=== PATIENT | female | born 1940 | race Caucasian/White ===

== ENCOUNTER → 2021-11-03 | Outpatient (CLI) | payer MEDICARE ==
--- NOTE | 2021-11-03 15:00 | BD ---
EXAMINATION TYPE: Axial Bone Density DATE OF EXAM: 11/03/2021 COMPARISON: NONE CLINICAL HISTORY: 81 years year old Female. ICD-10 CODE: M85.80 DISORDER OF BONE DENSITY Height: 5 FT 3/4 IN Weight: 121 FRAX RISK QUESTIONS: Alcohol (3 or more units per day): NO Family History (Parent hip fracture): NO Glucocorticoids (More than 3mos): NO (Ex: prednisone, prednisolone, methylprednisolone, dexamethasone, and hydrocortisone). History of Fracture in Adulthood: YES Secondary Osteoporosis: 1. Type 1 Diabetes: NO 2. Hyperthyroidism: NO 3. Menopause before 45: NO 4. Malnutrition: NO 5. Chronic liver disease: NO Rheumatoid Arthritis: NO Current Tobacco Use: NO RISK FACTORS HISTORY OF: Surgery to Spine/Hip(right/left)/Wrist (right/left): LEFT HIP REPLACEMENT When: 2009 Family History of Osteoporosis: NO Active: YES Diet low in dairy products/other sources of calcium: NO Postmenopausal woman: PART HYST AGE 41 Take estrogen and/or progesterone medications: NO Lost more than 2 inches in height since high school: YES Frequent falls: NO Poor Health: GOOD Hyperparathyroidism: NO Adrenal Insufficiency: NO MEDICATIONS: Osteoporosis Medications: YES Which medication: RALOXIFENE How Long: LONG TIME Additional Medications: RALOXIFENE, SIMVASTATIN, MUSCLE RELAXER, Additional History: EXAM MEASUREMENTS: Bone mineral densitometry was performed using the [employer] System. Bone mineral density as measured about the Lumbar spine is: ----- L1-L4(G/cm2): 0.907 T Score Values are as follows: ----- L1: -1.7 ----- L2: -2.5 ----- L3: -2.8 ----- L4: -2.2 ----- L1-L4: -2.3 PREV DONE ELSEWHERE Bone mineral density about the R hip (g/cm2): 0.690 T Score values are as follows: -----R Neck: -2.5 -----R Total: -1.9 PREV DONE ELSEWHERE FRAX%s: The graph provided illustrates a 26.1 % chance for a major osteoporotic fx and a 8.7 % chance for the hips probability for fx in 10 years time. IMPRESSION: Osteopenia NOTE: T-SCORE=SD OF THE YOUNG ADULT MEAN.
== END | disposition home or self-care (01) ==
LOC: RADBDWWP 13:04
PROVIDERS: ATTEND Family Medicine
DX: M85.80 Other specified disorders of bone density and structure, unspecified site (principal)
CPT/HCPCS: 77080

== ENCOUNTER → 2022-02-14 | Outpatient (CLI) | payer MEDICARE ==
--- NOTE | 2022-02-14 16:06 | MR ---
EXAMINATION TYPE: MR cervical spine wo con DATE OF EXAM: 02/14/2022 COMPARISON: None HISTORY: CERV DISC DEGENERATION, Neck pain Multiplanar multiecho imaging of the cervical spine with no contrast. There is severe narrowing of the disc spaces at C5-6 and C6-7. Spinal canal appears adequate the cerv ical spinal cord shows no edema. No cervical spinal stenosis. No compression fracture. There is intac t brainstem. No cervical paraspinal mass. The posterior elements are intact. At C7-T1 there is a mini mal anterior subluxation of 3 mm. IMPRESSION: Multilevel spondylotic changes. Degenerative subluxation at C7-T1. No cervical spinal stenosis. 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
== END | disposition home or self-care (01) ==
LOC: RADMRIMAIN 12:19
PROVIDERS: ATTEND Anesthesiology
DX: M50.320 Other cervical disc degeneration, mid-cervical region, unspecified level (principal); S13.1 Subluxation and dislocation of cervical vertebrae; Y99.9 Unspecified external cause status
CPT/HCPCS: 72141

== ENCOUNTER 2022-07-08 11:19 | Day surgery (SDC) | payer MEDICARE ==
[2022-07-06 11:01] VITALS: BMI 22.6
[~2022-07-08 11:19] MED LIST: LACTATED RINGERS 1,000 ML IV SCH; LIDOCAINE 1% (10MG/ML) FOR IV START INTRADERMA PRN
[2022-07-08 12:17] VITALS: TEMP 97
[2022-07-08] MEDS ORDERED: PROPOFOL 10 MG/ML 20 ML VIAL IV ONE (12:56)
--- NOTE | 2022-07-08 13:20 | P.PCN ---
Date of Procedure: 07/08/22 Procedure(s) Performed: BRIEF HISTORY: Patient is a 81-year-old pleasant white female scheduled for an elective colonoscopy as a part of screening evaluation of intermittent rectal bleeding. PROCEDURE PERFORMED: Colonoscopy. PREOPERATIVE DIAGNOSIS: Rectal bleeding. IV sedation per Anesthesia. PROCEDURE: After informed consent was obtained, the patient, was brought into the endoscopy unit. IV sedation was administered by Anesthesia under continuous monitoring. Digital rectal examination was normal. Initially the Olympus CF-160 flexible video colonoscope was then inserted in the rectum, gradually advanced into the cecum without any difficulty. Careful examination was performed as the scope was gradually being withdrawn. Ileocecal valve and the appendiceal orifice were visualized and appeared normal. Prep was excellent. Mucosa of the cecum, ascending colon, transverse colon, descending colon, sigmoid colon, and rectum appeared normal. Retroflexion was performed in the rectum and no lesions were seen. The patient tolerated the procedure well. IMPRESSION: Normal-appearing colon from rectum to cecum no evidence of colorectal neoplasia . RECOMMENDATIONS: Findings of this examination were discussed with the patient as well as a family. She was advised to be a high-fiber diet and take fiber supplements a regular basis..
[2022-07-08 13:36] VITALS: RESP 14
[2022-07-08 13:44] VITALS: BP 142/76; PULSE 84
== END 2022-07-08 14:10 | disposition home or self-care (01) ==
LOC: ORWHC2ENDO 11:19
PROVIDERS: ATTEND Internal Medicine Gastroenterology
DX: R19.7 Diarrhea, unspecified (principal); K62.5 Hemorrhage of anus and rectum
CPT/HCPCS: 45378; J2704

== ENCOUNTER → 2024-01-12 | Outpatient (CLI) | payer MEDICARE ==
--- NOTE | 2024-01-12 13:19 | BD ---
EXAMINATION TYPE: Axial Bone Density DATE OF EXAM: 01/12/2024 CLINICAL HISTORY: 83 years old Female. ICD-10 CODE: M85.80 OSTEOPENIA Height: 5 ft Weight: 118 FRAX RISK QUESTIONS: Alcohol (3 or more units per day): no Family History (Parent hip fracture): no Glucocorticoids (More than 3mos): no (Ex: prednisone, prednisolone, methylprednisolone, dexamethasone, and hydrocortisone). History of Fracture in Adulthood: no Secondary Osteoporosis: 1. Type 1 Diabetes: no 2. Hyperthyroidism: no 3. Menopause before 45: yes 4. Malnutrition: no 5. Chronic liver disease: no Rheumatoid Arthritis: no Current Tobacco Use: no RISK FACTORS HISTORY OF: Surgery to Spine/Hip(right/left)/Wrist (right/left): left hip replacement When: 2009 MEDICATIONS: Thyroid Medications: none Osteoporosis Medications: none EXAM MEASUREMENTS: Bone mineral densitometry was performed using the [employer] System. Bone mineral density as measured about the Lumbar spine is: ----- L1-L4(G/cm2): 0.893 T Score Values are as follows: ----- L1: -2.3 ----- L2: -2.5 ----- L3: -2.6 ----- L4: -2.3 ----- L1-L4: -2.4 Z Score Values are as follows: ----- L1: -0.1 ----- L2: -0.2 ----- L3: -0.3 ----- L4: -0.1 ----- L1-L4: -0.1 Bone mineral density has: decreased -1.5 % since study of: 2021 Bone mineral density about the R hip (g/cm2): 0.742 T Score values are as follows: -----R Neck: -2.5 -----R Total: -2.1 Z Score values are as follows: -----R Neck: 0.0 -----R Total: 0.3 Bone mineral density has: decreased -4.0 % since study of: 2021 FRAX%s: The graph provided illustrates a 18.1 % chance for a major osteoporotic fx and a 6.7 % chance for the hips probability for fx in 10 years time. IMPRESSION: Osteopenia (T Score between -2.5 and -1). There is slightly increased risk of fracture and the patient may be considered for treatment. Re-Screen 2-5 years. NOTE: T-SCORE=SD OF THE YOUNG ADULT MEAN.
== END | disposition home or self-care (01) ==
LOC: RADBDWWP 10:34
PROVIDERS: ATTEND Family Medicine
DX: M85.89 Other specified disorders of bone density and structure, multiple sites (principal); M81.0 Age-related osteoporosis without current pathological fracture; Z78.0 Asymptomatic menopausal state
CPT/HCPCS: 77080

== ENCOUNTER → 2024-04-04 | Outpatient (CLI) | payer MEDICARE ==
[2024-04-04 19:05] LABS: Basophils # (A) 0.03 X 10*3/uL (0.00-0.10); Basophils % (A) 0.6 %; Eosinophils # (A) 0.07 X 10*3/uL (0.04-0.35); Eosinophils % (A) 1.5 %; HCT 34.5 % (37.2-46.3); HGB 11.1 g/dL (12.0-15.0); Lymphocytes # (A) 1.86 X 10*3/uL (0.90-5.00); Lymphocytes % (A) 39.5 %; MCHC 32.2 g/dL (32.0-37.0); MCV 93.2 FL (80.0-97.0); Mean Platelet Volume 9.4 FL (9.5-12.2); Monocytes # (A) 0.42 X 10*3/uL (0.20-1.00); Monocytes % (A) 8.9 %; NRBC Per 100 WBC 0 X 10*3/uL (0.00-0.01); Neutrophils # (A) 2.31 X 10*3/uL (1.80-7.70); Neutrophils % (A) 49.1 %; Platelet Count 203 X 10*3/uL (140-440); RDW 14.6 % (11.5-14.5); WBC 4.71 X 10*3/uL (4.50-10.00)
[2024-04-04 20:39] LABS: % Iron Saturation 21.57 (12.00-45.00)
[2024-04-04 21:14] LABS: Reticulocyte % 1.37 % (0.10-1.80)
== END | disposition home or self-care (01) ==
LOC: LABWHC1 13:19
PROVIDERS: ATTEND Internal Medicine Gastroenterology
DX: D64.9 Anemia, unspecified (principal)
CPT/HCPCS: 36415; 82607; 82728; 83540; 83550; 85025; 85045

== ENCOUNTER → 2024-06-30 | Outpatient (CLI) | payer MEDICARE ==
[2024-06-30 18:30] LABS: Basophils # (A) 0.05 X 10*3/uL (0.00-0.10); Basophils % (A) 0.7 %; Eosinophils # (A) 0.05 X 10*3/uL (0.04-0.35); Eosinophils % (A) 0.7 %; HCT 38.4 % (37.2-46.3); HGB 12.4 g/dL (12.0-15.0); Lymphocytes # (A) 1.76 X 10*3/uL (0.90-5.00); Lymphocytes % (A) 26.2 %; MCH 29.9 pg (27.0-32.0); MCHC 32.3 g/dL (32.0-37.0); MCV 92.5 FL (80.0-97.0); Monocytes # (A) 0.54 X 10*3/uL (0.20-1.00); NRBC Per 100 WBC 0 X 10*3/uL (0.00-0.01); Neutrophils # (A) 4.25 X 10*3/uL (1.80-7.70); Neutrophils % (A) 63.4 %; Platelet Count 240 X 10*3/uL (140-440); RBC 4.15 X 10*6/uL (4.10-5.20); RDW 15.9 % (11.5-14.5); WBC 6.72 X 10*3/uL (4.50-10.00)
[2024-07-01 02:57] LABS: % Iron Saturation 24.45 (12.00-45.00)
== END | disposition home or self-care (01) ==
LOC: LABWHC1 12:48
PROVIDERS: ATTEND Internal Medicine Gastroenterology
DX: D64.9 Anemia, unspecified (principal)
CPT/HCPCS: 36415; 82728; 83540; 83550; 85025

== ENCOUNTER → 2025-01-11 | Outpatient (CLI) | payer MEDICARE ==
[2025-01-11 20:15] LABS: Basophils # (A) 0.04 X 10*3/uL (0.00-0.10); Basophils % (A) 0.7 %; Eosinophils # (A) 0.07 X 10*3/uL (0.04-0.35); Eosinophils % (A) 1.2 %; HCT 34.3 % (37.2-46.3); Lymphocytes % (A) 28.1 %; MCH 30.6 pg (27.0-32.0); MCHC 32.1 g/dL (32.0-37.0); MCV 95.3 FL (80.0-97.0); Mean Platelet Volume 9.3 FL (9.5-12.2); Monocytes # (A) 0.54 X 10*3/uL (0.20-1.00); Monocytes % (A) 8.9 %; NRBC Per 100 WBC 0 X 10*3/uL (0.00-0.01); Neutrophils # (A) 3.65 X 10*3/uL (1.80-7.70); Neutrophils % (A) 60.4 %; Platelet Count 231 X 10*3/uL (140-440); WBC 6.04 X 10*3/uL (4.50-10.00)
== END | disposition home or self-care (01) ==
LOC: LABWHC1 12:43
PROVIDERS: ATTEND Internal Medicine Gastroenterology
DX: D64.9 Anemia, unspecified (principal)
CPT/HCPCS: 36415; 85025